=== PATIENT | male | born 1975 | race Two or more races ===

== ENCOUNTER 2024-09-23 20:38 | Emergency (ER) | payer OTHER ==
[~2024-09-23] VITALS: Ht 172.7 cm; Wt 84.8 kg
[2024-09-23 20:45] VITALS: BP 146/90; O2SAT 98
[2024-09-23 21:42] LABS: HEMATOCRIT 46.9 % (39.0-48.0); HEMOGLOBIN 15.8 g/dL (13-16.00); MEAN CELL VOLUME 85.7 fL (80.0-100.00); MEAN CORPUSCULAR HEMOGLOBIN 28.9 pg (27.00-32.0); MEAN CORPUSCULAR HGB CONC 33.7 g/dl (32.0-36.0); PLATELET COUNT 218 K/uL (150-450); RED BLOOD COUNT 5.47 M/uL (4.00-6.00); RED CELL DISTRIBUTION WIDTH 14.1 % (11.5-14.5)
[2024-09-23] MEDS ORDERED: CEFTRIAXONE SODIUM 1,000 MG VIAL IM ONE (22:30)
[2024-09-23] MEDS ORDERED: AMOX-CLAV 875-1 EACH PO (22:32)
[2024-09-23] MEDS ORDERED: CEFTRIAXONE SODIUM 1,000 MG VIAL ONE (22:34)
== END 2024-09-23 22:45 | disposition home or self-care (01) ==
LOC: ER 20:41
PROVIDERS: Preventive Medicine Public Health & General Preventive Medicine
DX: J06.9 Acute upper respiratory infection, unspecified (principal); J02.8 Acute pharyngitis due to other specified organisms; Z20.822 Contact with and (suspected) exposure to COVID-19